=== PATIENT | male | born 1935 | race Asian ===

== ENCOUNTER → 2018-06-16 | Outpatient (CLI) | payer OTHER, MEDICAID | LOC: BHFA 13:30 | PROVIDERS: ATTEND Internal Medicine Cardiovascular Disease | DX: Z01.810 Encounter for preprocedural cardiovascular examination (principal); I25.810 Atherosclerosis of coronary artery bypass graft(s) without angina pectoris; R07.9 Chest pain, unspecified; R06.02 Shortness of breath ==

== ENCOUNTER → 2018-06-24 | Outpatient (CLI) | payer OTHER, MEDICAID ==
--- NOTE | 2018-06-24 17:24 | ECHO ---
[email or web address] [address] [address] Main: [phone] Fax: Transthoracic Echocardiogram Name: RICHARD LOUIE MR#: [id number] Study Date: 06/24/2018 Study Time: 01:47 PM Date of : 1935 Age: 82 year(s) Height: ( ) Weight: ( ) BSA: Gender: Male Examination: Echo Indication: chest pain/ pre sx Image Quality: Adequate Contrast: Requested by: Iain Bravo BP: / Heart Rate: Rhythm: Indication: chest pain/ pre sx Procedure Staff Director Specialty: Evie Willson RDCS Reading Physician: Bay Bunch MD Requesting Provider: Conclusions: Normal size left ventricle. Mild concentric LV hypertrophy. Normal global systolic LV function. EF is 55 %. Normal diastolic LV function. Normal RV function. The left atrium is normal in size. The right atrium is normal in size. The pulmonary artery pressure is normal. Right ventricular systolic pressure measures 28mmHg. Normal size ascending aorta measuring 3.0 cm. Measurements: Chambers Valvular Assessment AV/MV Valvular Assessment TV/PV Normal Normal Normal Name Value Range Name Value Range Name Value Range Ao Coty (2D): 2.8 cm (1.4 cm-2.6 AV Vmax: 1.24 m/s (1 m/s-1.7 TR Vmax: 2.40 mm/s ( - ) cm) m/s) TR PGmax: 23 mmHg ( - ) IVSd (2D): 1.2 cm (0.6 cm-1.1 AV maxP mmHg ( - ) syst. PAP: 28 mmHg ( - ) cm) AV meanP mmHg ( - ) PV Vmax: 0.73 m/s (0.6 m/s-0.9 LVDd (2D): 3.7 cm (4.2 cm-5.9 JANETH (VTI): 1.6 cm ( - ) m/s) cm) MV E Vmax: 0.78 m/s ( - ) PV PGmax: 2 mmHg ( - ) LVDs (2D): 2.4 cm (2.1 cm-4 MV A Vmax: 0.68 m/s ( - ) cm) MV E/A: 1.15 ( - ) LVPWd (2D): 1.0 cm (0.6 cm-1 cm) MV PHT: 0.056 s ( - ) LVOTd 1.8 cm 1.8 cm mm MVA (PHT): 3.9 s ( - ) LVEF (BP): 55 % (>=55 %) RVDd(2D): 2.5 cm (1.9 cm-3.8 cmmm) Patient: RICHARD LOUIE Study Date: 06/24/2018 Page 1 of 2 01:47 PM Continued Measurements: Chambers Valvular Assessment AV/MV Valvular Assessment TV/PV Name Value Name Value Name Value LADs: 3.1 cm MV DecTime: 187 m/s CVP (est.): 5 mmHg LADs Lon.7 cm MV E' Septal: 0.05 m/s LA Area: 14.4 cm2 MV E/E' Septal: 15.20 LA Volume: 30 ml MV E/E' Lateral: 8.60 RA Area: 13.3 cm2 Additional Vessels Name Value Ao Ascendin.0 cm Inferior Vena Cava: 1.5 cm Findings: Left Ventricle: Normal size left ventricle. Mild concentric LV hypertrophy. Normal global systolic LV function. EF is 55 %. No regional wall motion abnormality. Normal diastolic LV function. Right Ventricle: Normal size right ventricle. Normal RV function. Left Atrium: The left atrium is normal in size. Right Atrium: The right atrium is normal in size. Mitral Valve: The mitral valve is normal in appearance and function. Mild mitral valve regurgitation is present. No mitral stenosis is present. Aortic Valve: The aortic valve is tri-leaflet. Aortic sclerosis is present. Mild aortic valve regurgitation is present. No aortic valve stenosis is present. Tricuspid Valve: The tricuspid valve is normal in appearance and function. Mild tricuspid regurgitation is present. The pulmonary artery pressure is normal. Right ventricular systolic pressure measures 28mmHg. Pulmonic Valve: The pulmonic valve is normal in appearance and function. Trivial pulmonic valve regurgitation. Aorta: The aorta is normal. Normal size aortic root measuring 2.8 cm. Normal size ascending aorta measuring 3.0 cm. IVC: The IVC is normal sized. Pericardium: No pericardial effusion. No pleural effusion. (No Signature Object) Patient: RICHARD LOUIE Study Date: 06/24/2018 Page 2 of 2 01:47 PM [id number]
== END ==
LOC: FCP 13:21
PROVIDERS: ATTEND Internal Medicine Cardiovascular Disease
DX: Z01.810 Encounter for preprocedural cardiovascular examination (principal); I25.810 Atherosclerosis of coronary artery bypass graft(s) without angina pectoris; R07.9 Chest pain, unspecified; R06.02 Shortness of breath

== ENCOUNTER → 2018-06-28 | Outpatient (CLI) | payer OTHER, MEDICAID | LOC: BHFA 13:00 | PROVIDERS: ATTEND Internal Medicine Cardiovascular Disease | DX: R07.9 Chest pain, unspecified (principal); R06.02 Shortness of breath | CPT/HCPCS: 78452; 93017; A9500; J2785 ==